=== PATIENT | female | born 1955 | race Caucasian/White ===

== ENCOUNTER → 2017-01-05 | Day surgery (SDC) | payer BC ==
[2016-12-16 13:12] VITALS: Ht 162.6 cm; Wt 86.4 kg
[~2017-01-05] VITALS: Ht 162.6 cm; Wt 86.4 kg
[~2017-01-05] MED LIST: ACET-749 PO; ATOR-26 PO; ATROPINE SULFATE 0.1 MG/ML 5ML SYR IV PRN; BUPIVACAINE 0.5 % 5 MG/1 ML MPF 30ML VIAL ONE; CEFAZOLIN 2000 MG/60 ML D5W IV SCH; ESCI1TAB10 PO; EpHEDrine SULFATE INJ 50 MG/ML AMP IV PRN; FENTANYL CITRATE INJ 50 MCG/1 ML 2 ML VIAL IV PRN; FENTANYL CITRATE INJ 50 MCG/1 ML 2 ML VIAL ONE; KETOROLAC TROMETHAMINE 30 MG/ML VIAL IV. PRN; LACTATED RINGER'S 1000ML 1,000 ML IV SCH; LIDOCAINE HCL 2% 2 ML VIAL (20MG/ML) ONE; LIDOCAINE HCL 2% LOCAL 20 ML VIAL ONE; MIDAZOLAM HCL 1 MG/ML 2ML VIAL ONE; ONDANSETRON INJ 2 MG/ML 2 ML VIAL IV PRN; ONDANSETRON INJ 2 MG/ML 2 ML VIAL ONE; PROPOFOL IV EMULSION 10 MG/ML 20 ML VIAL IV ONE; SODIUM CHLORIDE 0.9% 1000ML 1,000 ML IV SCH
--- NOTE | 2017-01-05 06:55 | History & Physical Bridge - [place] ---
H&P Re-Evaluation Bridge Note: I have examined the patient, reviewed the History & Physical and in the interval since the performance of the History & Physical I have noted the following changes of clinical significance: No changes noted
--- NOTE | 2017-01-05 07:31 | Discharge Instructions-SurgCtr ---
Discharge Instructions Date of Service Jan 05, 2017. Visit Reason for Visit: Left Carpal Tunnel Syndrome Discharge Discharge Diagnosis / Problem: LEFT CARPAL TUNNEL SYNDROME Discharge Goals Goal(s): Decrease discomfort, Improve function, Therapeutic intervention Activity Recommendations Activity Limitations: per Instructions/Follow-up section LIMITED USE OF LEFT HAND Anesthesia . Post Anesthesia Instructions: If you have had General Anesthesia or IV Sedation: * Do not drive today. * Resume driving when surgeon permits. * Do not make important decisions or sign legal documents today. * Call surgeon for: 1. Temperature elevations greater than 101 degrees F. 2. Uncontrollable pain. 3. Excessive bleeding. 4. Persistent nausea and vomiting. 5. Medication intolerance (nausea, vomiting or rash). * For nausea and vomiting use only clear liquids such as: tea, soda, bouillon until nausea subsides, then gradually increase diet as tolerated. * If you have any concerns or questions, call your surgeon's office. If physician is unavailable and it is an emergency, call 911 or go to the nearest emergency room. . Instructions / Follow-Up Instructions / Follow-Up MEDICATIONS: * Resume previous medications unless instructed otherwise by your surgeon. * Always take pain medication on a full stomach or with food to avoid upset stomach. * Do not drink alcohol or drive while taking narcotics. * Ibuprofen or Tylenol may be taken if narcotic not needed. SPECIAL CARE INSTRUCTIONS: __ None __ Keep extremity elevated and iced x 48 hours; apply ice 20-30 minutes 8-10 times/day. May remove at night. __ Sling __24 hrs/day __ Remove at night __ Shoulder Immobilizer __ 24 hrs/day __ Remove at night _X_ Dressing _X_ Maintain until seen in office, may shower with plastic over site __ Remove dressings in 24-48 hours and then may shower __ Cover incisions with band-aids after showering __ Do not remove steri-strips Call physician if chills or temperature rises above 102 degrees or pain unrelieved by prescribed pain medications at . FOLLOW UP IN 2 WEEKS . Diet Recommendations Home Diet: resume previous diet Procedures Procedures Performed: Left Carpal Tunnel Release Pending Studies Studies pending at discharge: no Medical Emergencies . Who to Call and When: Medical Emergencies: If at any time you feel your situation is an emergency, please call 911 immediately. . Non-Emergent Contact Non-Emergency issues call your: Surgeon . . "Provider Documentation" section prepared by Raffy Fuentes. .
[2017-01-05 07:33] VITALS: TEMP 36.4
--- NOTE | 2017-01-05 07:35 | [facility] Post Operative Brief Note ---
Immediate Operative Summary Operative Date Jan 05, 2017. Pre-Operative Diagnosis Left Carpal Tunnel Syndrome Post-Operative Diagnosis same Procedure(s) Performed Left Carpal Tunnel Release Surgeon Dr Dalton Process Safety Manager Surgeon(s) Travis Fuentes PA-C Estimated Blood Loss minimal Findings Left Carpal Tunnel Syndrome Specimens none Anesthesia Local with IV Sedation. Complication(s) None Disposition Recovery Room / PACU
--- NOTE | 2017-01-05 07:52 | Anesthesia Progress Nt - [facility] ---
Anesthesia Post Op Note Date & Time Jan 05, 2017 at 07:52 Vital Signs Pain Intensity: 0 Vital Signs Past 12 Hours Date Time Temp Pulse Resp B/P (MAP) Pulse Ox O2 Delivery O2 Flow Rate FiO2 01/05/17 07:33 36.4 68 16 113/75 (88) 98 Room Air 01/05/17 06:23 36.5 68 16 148/85 (106) 96 Room Air Notes Mental Status: alert / awake / arousable, participated in evaluation Pt Amnestic to Procedure: Yes Nausea / Vomiting: adequately controlled Pain: adequately controlled Airway Patency, RR, SpO2: stable & adequate BP & HR: stable & adequate Hydration State: stable & adequate Anesthetic Complications: no major complications apparent
[2017-01-05 07:55] VITALS: BP 119/79; PULSE 69; O2SAT 98
--- NOTE | 2017-01-05 14:33 | OPERATIVE REPORT ---
DATE OF OPERATION: 01/05/2017 SURGEON: Dr. Richard Dalton. TELEGRAPHIC TYPEWRITER MECHANIC: SARAH Martinez PREOPERATIVE DIAGNOSIS: Left carpal tunnel syndrome. POSTOPERATIVE DIAGNOSIS: Same. PROCEDURE PERFORMED: Left carpal tunnel release. COMPLICATIONS: None. ESTIMATED BLOOD LOSS: Minimal. TOURNIQUET TIME: Six minutes at 250 mmHg. ANESTHESIA: Local with IV sedation. OPERATIVE INDICATIONS: The patient is a 61-year-old female who has had a several year history of left hand pain, discomfort, and numbness. We have seen her in clinic and injected her on 2 separate occasions and she got pretty good temporary relief from the injection. Symptoms continued to recur. She had classic carpal tunnel syndrome. The patient elected to proceed with operative treatment. OPERATIVE PROCEDURE: The patient taken to the operating room, identified and placed on the operating table in supine position. All contact areas were appropriately padded. IV antibiotics were provided by the anesthesia team. A left forearm tourniquet was placed. Some IV sedation was provided. 8 mL of a 50:50 combination of 0.5% Marcaine and 2% lidocaine were then injected in and around the proposed incision site. The left hand was then prepped and draped in the usual sterile fashion. Left arm was elevated and exsanguinated with Esmarch and tourniquet was placed at 250 mmHg. A 2.5-3 cm incision was made in the palm just ulnar to the palmaris longus tendon. Blunt dissection was carried out through the subcutaneous tissues down below the palmar fascia. The palmar fascia was incised longitudinally in line with the skin incision. The underlying transverse carpal ligament was identified. It was transected distally with use of a Glades blade knife and bluntly spread. Attention was then drawn proximally. Blunt dissection was carried out above and below the ligament proximally. The ligament was then transected for a minimum distance of 3 cm proximal to the wrist flexion crease. The ligament was bluntly spread and found to be completely released. The wound was irrigated with copious amounts of normal saline. The tourniquet was then let down for final tourniquet time of 6 minutes. Hemostasis was assured with use of electrocautery. The wound was once again irrigated. The skin was then closed with 5-0 nylon suture in a horizontal mattress fashion. The hand was then cleaned and dried and a sterile dressing of Xeroform, 4 x 4, sterile cast padding and Keenan bandage were applied. The patient was then transferred to the recovery room in stable condition. The patient tolerated the procedure well with no complications. All needle and sponge counts were correct at the end of the operation. I attest to the content of the Intraoperative Record and any orders documented therein. Any exceptions are noted below. MTDD
== END | disposition home or self-care (01) ==
LOC: X.SURG 06:08
PROVIDERS: ATTEND Orthopaedic Surgery Sports Medicine
DX: G56.02 Carpal tunnel syndrome, left upper limb (principal); E78.5 Hyperlipidemia, unspecified; Z79.899 Other long term (current) drug therapy

== ENCOUNTER 2024-08-02 09:47 | Inpatient (IN) ==
--- NOTE | 2024-07-03 14:15 | PAT Medication Instructions ---
Medication Instructions Date of Service July 03, 2024 Home Medications albuterol sulfate 90 mcg/actuation aerosol inhaler 2 puff inhalation Q6H PRN SOB atorvastatin 40 mg tablet 40 mg PO HS ibuprofen 200 mg capsule 600 mg PO Q6H PRN Pain sertraline 50 mg tablet (Zoloft) 50 mg PO HS ASK your surgeon for instructions ibuprofen 200 mg capsule 600 mg PO Q6H PRN Pain Take morning of surgery With a small sip of water, OTHERWISE NOTHING TO EAT OR DRINK AFTER MIDNIGHT: albuterol sulfate 90 mcg/actuation aerosol inhaler 2 puff inhalation Q6H PRN SOB (use if needed; please bring rescue inhaler with you to hospital day of surgery if possible) Take evening before surgery albuterol sulfate 90 mcg/actuation aerosol inhaler 2 puff inhalation Q6H PRN SOB (if needed) atorvastatin 40 mg tablet 40 mg PO HS sertraline 50 mg tablet (Zoloft) 50 mg PO HS Other Notes If you have any questions please call us at [phone] or [phone] or [phone] or [phone]
--- NOTE | 2024-07-11 15:41 | Anesthesiology Consultation ---
Date of Service July 11, 2024 Assessment & Plan (1) Encounter for pre-operative examination: Chart Review Chart Review: Acceptable Risk for Surgery and Patient seen in Pre Admission Testing - Please send preop testing to PCP per patient request for continuity of care [facility] [place] Pt currently scheduled as 23 hours observation. If surgeon decides to change patient to Same Day Joint, patient would be acceptable risk for ELIDA, pending patient is motivated, has good support and surgeon's office completes Same Day Joint Program preop requirements. Per PAT appt on 07/11/24, no recent illness/disease exposures, illness related symptoms, or recent illness/disease positive tests. Will leave to surgeon's discretion if preop Covid testing needed PCP Clearance Letter 06/13/24= "Yes" patient is medically cleared for surgery History Surgery Operation Date: 08/02/24 08:15 Proposed Procedures p Left Total Hip Arthroplasty - Norris Aragon MD Height/Weight Height: 5 ft 4 in Weight: 86.5 kg Allergies Allergy/AdvReac Type Severity Reaction Status Date / Time No Known Allergies Allergy Verified 07/03/24 09:46 Medications Home Medications Medication Instructions Recorded Confirmed Last Taken albuterol sulfate 90 mcg/actuation 2 puff inhalation Q6H PRN SOB 07/03/24 07/03/24 Unknown aerosol inhaler atorvastatin 40 mg tablet 40 mg PO HS 07/03/24 07/03/24 Unknown ibuprofen 200 mg capsule 600 mg PO Q6H PRN Pain 07/03/24 07/03/24 Unknown sertraline 50 mg tablet (Zoloft) 50 mg PO HS 07/03/24 07/03/24 Unknown Past Medical History Medical History Asthma prn inh>uses mainly with illness stable breathing currently Depression History of COVID-19 2019 and 2021, no residual symptoms HLD (hyperlipidemia) PONV (postoperative nausea and vomiting) Exercise / Class Metabolic Activity II 4-5 Yardwork/Stairs/Walk up hill (one flight of stairs - no chest pain or SOB ) Past Surgical History Surgical History History of carpal tunnel surgery of left wrist History of dilatation and curettage 2009 Hx of appendectomy 2016 Hx of colonoscopy Past Anesthesia History No Hx of Anesthesia Complications (with exception to PONV ) and No Family Hx of Anesthesia Complications History of PONV History of PONV (improve with pre and venus op anti nausea medication ) and Hx of Motion Sickness Social History Smoking Status: Never smoker Do You Dip or Chew Tobacco: No Hx Alcohol Use: Yes Alcohol type: wine alcohol intake frequency: holidays/special occasions only Hx Substance Use: No substance use type: does not use Review of Systems - Hx of snoring- no hx of sleep study- improved with weight loss Patient denies chest pain, shortness of breath, dyspnea on exertion, reflux, cough, wheezing, palpitations. No hx of seizures, stroke, [place]. No hx of blood clots or blood transfusions Physical Exam Vital Signs VITALS BP 134/85 P 89 TEMP 97.9 SP02 93% RESP 16 Constitutional no acute distress ENMT Mouth: no TMJ clicking Thyromental Distance: > or= 3.5 Finger Breadths (3.5) Mallampati Class: I Mouth / Teeth: 2 1. Flapper Neck neck extension not limited Respiratory normal respiratory effort; no respiratory distress Auscultation: lungs clear to auscultation bilaterally; no wheezes Cardiovascular Rate/Rhythm: regular rate and regular rhythm Heart Sounds: no murmur Vessels: no carotid bruit Musculoskeletal Spine: no pain with cervical ROM Extremities: extremities normal to inspection Psychiatric Orientation: alert Lab Results Anesthesia Preop Results Results Anesthesia Widget: 2 WBC 8.99 K/ul (4.8-10.8) 07/11/24 Hgb 12.9 g/dl (12.0-16.0) 07/11/24 Hct 38.5 % (37.0-47.0) 07/11/24 Plt 264 K/uL (130-400) 07/11/24 Na 141 mmol/L (136-145) 07/11/24 K 4.2 mmol/L (3.5-5.1) 07/11/24 Cl 106 mmol/L (98-107) 07/11/24 CO2 29 mmol/L (21-32) 07/11/24 BUN 21 mg/dl (6-23) 07/11/24 Creat 0.99 mg/dl (0.6-1.2) 07/11/24 Glucose Level 83 mg/dl (70-99(Fasting)) 07/11/24 PT 10.1 Seconds (9.0-12.0) 07/11/24 PTT 28 Seconds (21-31) 07/11/24 INR 0.9 (0.9-1.1) 07/11/24 Urine Color Yellow 07/11/24 Urine Appearance Clear (Clear) 07/11/24 Urine pH 6.0 (4.5-7.5) 07/11/24 Urine Specific [place] 1.031 (1.000-1.030) H 07/11/24 Urine Protein Negative (Negative) 07/11/24 Urine Glucose (UA) Negative (Negative) 07/11/24 Urine Ketones Trace (Negative) H 07/11/24 Urine Blood Negative (Negative) 07/11/24 Urine Nitrite Negative (Negative) 07/11/24 Urine Bilirubin Negative (Negative) 07/11/24 Urine Urobilinogen Negative (Negative) 07/11/24 Urine Leukocyte Esterase 1+ (Negative) H 07/11/24 Urine WBC (Auto) 6-10 /hpf (0-5) H 07/11/24 Urine RBC (Auto) 6-10 /hpf (0-2) H 07/11/24 Urine Hyaline Casts (Auto) 0-2 /lpf (0-2) 07/11/24 Urine Epithelial Cells (Auto) 3-5 /hpf (0-2) H 07/11/24 Urine Bacteria (Auto) None Seen (None Seen) 07/11/24 Blood Type O Positive 07/11/24 Antibody Screen NEGATIVE 07/11/24 Testing Electrocardiogram Date: 07/11/24 Findings: + NSR @ (78bpm) Normal EKG pre cardio
--- NOTE | 2024-07-17 16:57 | History & Physical Report ---
Date of Service July 17, 2024 Assessment & Plan (1) Osteoarthritis of left hip: Plan: PRE-OP Diagnosis: Left hip osteoarthritis Planned Procedure: Left total hip arthroplasty Plan: Patient is scheduled to undergo this procedure at the [facility] with Dr. Aragon on , [ ]. Risks and complications of the procedure such as: Infection, bleeding, pain, scarring, nerve blood vessel damage, weakness, wound problems, stiffness, incomplete relief of symptoms, hardware failure, hardware loosening, wear, fracture, tendon or ligament injury, dislocation, leg length inequality, blood clots, Embolism, heart attack, stroke and were explained to the patient at her visit today. Informed consent to perform the procedure was obtained. Patient patient had her PAT appointment on July 12 and while there she obtained a CBC with differential, complete metabolic panel, PT/INR, blood type and screen, urinalysis, urine culture and sensitivity, EKG, and a nasal culture for MRSA. Patient saw her PCP at [facility] on June 13 and received clearance. Patient states that she plans on doing in-home physical therapy for the first 1 to 2 weeks postoperatively and plans on doing her outpatient physical therapy at [facility]. Patient will need a walker, raised toilet seat, shower chair and a hip kit. During today's visit we reviewed the total hip packet as well as precautions. We discussed discharge planning from the hospital. I provided paperwork to obtain a handicap placard for their vehicle. We discussed lectures offered by [facility] in regards to joint replacement surgery via Zoom. I advised the patient that upon discharge from hospital we will prescribe a narcotic pain medication and anti-inflammatory. Patient will also be on an 81 mg aspirin twice daily for blood clot prevention. Patient will be scheduled for 2-week postoperative follow-up visit with myself on August 17 at 1 PM. This chart was completed utilizing [employer] voice recognition software. Grammatical errors, random word insertions, pronoun errors, and in complete sentences are an occasional consequence of the system. Any questions or concerns about the content, text, or information contained within the body of this dictation should be addressed directly to the physician for clarification. History of Present Illness Chief Complaint: Chief Complaint: Left hip pain Primary Care Provider: Richard Dalton MD History of Present Illness (including history relevant to procedure): This 68-year-old female presents to the clinic today for her preoperative history and physical. Patient complains of severe left hip pain with limitations in range of motion since November of this year. She states that his become progressively worse and is affecting her gait. Patient states she has lost 15 pounds since her last visit, with dietary modification. She has failed conservative management with corticosteroid injections, home rehab program, use of nonsteroidal agents without alleviation of her pain. She has a walker at home that she uses when the weather is bad. She is elected to proceed with surgical intervention at this time. Review Of Systems: A 12 point review of systems is performed and is unremarkable except for those things stated in the HPI and past medical history. Past Medical History: Problems: Osteoarthritis of left hip Left hip pain Hypercholesterolemia Depression Procedure History Procedure Procedure Date Comments APPENDECTOMY Carpal tunnel Allergies and Sensitivities: NKA Current Home Meds: (Last Updated 07/17 15:37) atorvastatin (atorvastatin 40 mg oral tablet) 40 mg PO qhs sertraline (sertraline 50 mg oral tablet) 50 mg PO Daily Initial Wt: 07/17 87.1 kg 192 lb Allergies Allergy/AdvReac Type Severity Reaction Status Date / Time No Known Allergies Allergy Verified 07/03/24 09:46 Home Medications Medication Instructions Recorded Confirmed Type albuterol sulfate 90 mcg/actuation 2 puff inhalation Q6H PRN SOB 07/03/24 07/03/24 History aerosol inhaler atorvastatin 40 mg tablet 40 mg PO HS 07/03/24 07/03/24 History ibuprofen 200 mg capsule 600 mg PO Q6H PRN Pain 07/03/24 07/03/24 History sertraline 50 mg tablet (Zoloft) 50 mg PO HS 07/03/24 07/03/24 History Past Med/Surg History Problem List (Updated 07/17/24 @ 16:56 by Eduard Perez PA-C) Osteoarthritis of left hip Encounter for pre-operative examination Depression (Chronic) HLD (hyperlipidemia) (Chronic) Medical History Asthma prn inh>uses mainly with illness stable breathing currently Depression History of COVID-19 2019 and 2021, no residual symptoms HLD (hyperlipidemia) PONV (postoperative nausea and vomiting) Surgical History History of carpal tunnel surgery of left wrist History of dilatation and curettage 2010 Hx of appendectomy 2016 Hx of colonoscopy Social History Smoking Status: Never smoker Second Hand Exposure: No; Do You Dip or Chew Tobacco: No; Hx Alcohol Use: Yes Alcohol type: wine Hx Substance Use: No Preferred Language: Tamazight Communication Ability: Effective Chemical Engineer Required: No Beliefs That Will Affect Care: None Current Living Situation: Spouse Feels Safe at Home: Yes Assistive Devices: Glasses and Other Physical Exam Physical Exam: Physical Exam: (relevant to the procedure, including heart and lung evaluation) General: Alert and oriented x 3 with proper grooming and hygiene Eyes: Pupils are equal and reactive to light with accommodation. Extraocular movements are intact Throat: Posterior pharynx clear with absence of edema, erythema or exudate. Dentition is appropriate Cardiac: Regular rate and rhythm with no murmurs or gallops appreciated Lungs: Clear to auscultation throughout with no wheezing, rales or rhonchi Abdomen: Mildly obese, nondistended, nontender with NABS Extremities: Left hip: Flexion is limited to 90 degrees, internal rotation to -5 degrees and external rotation to 25 degrees. Logroll test is positive. Stinchfield test is positive. Scour and impingement tests positive. Antalgic gait Neuro: Cranial nerves II through XII are intact no motor or sensory deficit Skin: Normal in appearance no open skin areas or discharge Results & Data Diagnostic Findings Studies (relevant to the procedure): AP Pelvis, Cross table lateral views of the left hip from 12/2023which shows severe arthritis. Large subchondral cysts in femoral head
[~2024-08-02 09:47] MED LIST changes: -ACET-749 PO; -ATOR-26 PO; -ATROPINE SULFATE 0.1 MG/ML 5ML SYR IV PRN; -BUPIVACAINE 0.5 % 5 MG/1 ML MPF 30ML VIAL ONE; +BUPIVACAINE 0.5 % 5 MG/1 ML PF 10ML VIAL ONE; -CEFAZOLIN 2000 MG/60 ML D5W IV SCH; -ESCI1TAB10 PO; -EpHEDrine SULFATE INJ 50 MG/ML AMP IV PRN; -FENTANYL CITRATE INJ 50 MCG/1 ML 2 ML VIAL IV PRN; -FENTANYL CITRATE INJ 50 MCG/1 ML 2 ML VIAL ONE; -KETOROLAC TROMETHAMINE 30 MG/ML VIAL IV. PRN; -LACTATED RINGER'S 1000ML 1,000 ML IV SCH; -LIDOCAINE HCL 2% 2 ML VIAL (20MG/ML) ONE; -LIDOCAINE HCL 2% LOCAL 20 ML VIAL ONE; -MIDAZOLAM HCL 1 MG/ML 2ML VIAL ONE; -ONDANSETRON INJ 2 MG/ML 2 ML VIAL IV PRN; -ONDANSETRON INJ 2 MG/ML 2 ML VIAL ONE; -PROPOFOL IV EMULSION 10 MG/ML 20 ML VIAL IV ONE; -SODIUM CHLORIDE 0.9% 1000ML 1,000 ML IV SCH
[2024-08-02] MEDS ORDERED: MIDAZOLAM HCL 1 MG/ML 2ML VIAL ONE (10:43)
[2024-08-02] MEDS ORDERED: fentaNYL citrate PF 100 MCG/2 ML VIAL ONE (10:43)
[2024-08-02] MEDS: LR 500ML BOLUS, THEN 15ML/HR IV SCH (10:58)
[2024-08-02] MEDS: Scopolamine 1 MG TDSY TD SCH (10:58)
[2024-08-02] MEDS: ACETAMINOPHEN 500 MG TAB PO SCH ×2 (10:59→21:39)
[2024-08-02] MEDS: dexAMETHasone**PF** 10 MG/ML VIAL IV SCH (10:59)
[2024-08-02] MEDS: FAMOTIDINE 20 MG TAB PO SCH (11:00)
[2024-08-02] MEDS: LR 60ML/HR IV SCH (11:00)
[2024-08-02] MEDS: CeleBREX 200 MG CAP PO SCH (11:00)
[2024-08-02] MEDS: traMADol HCL 50 MG TABLET PO SCH (11:00)
[2024-08-02] MEDS ORDERED: ONDANSETRON INJ 2 MG/ML 2 ML VIAL IV PRN ×2 (11:15→14:42)
[2024-08-02] MEDS ORDERED: fentaNYL citrate PF 100 MCG/2 ML VIAL IV PRN (11:15)
[2024-08-02] MEDS ORDERED: ATROPINE SULFATE 0.1 MG/ML 10ML SYR IV PRN (11:15)
[2024-08-02] MEDS ORDERED: PROMETHAZINE HCL 6.25 MG in SODIUM CHLORIDE 0.9% 50 ML IV PRN (11:15)
[2024-08-02] MEDS ORDERED: ePHEDrine sulfate 50 MG/ML AMP IV PRN (11:15)
[2024-08-02] MEDS ORDERED: PROPOFOL IV EMULSION 10 MG/ML 20 ML VIAL IV ONE (11:38)
--- NOTE | 2024-08-02 12:10 | History & Physical Bridge Note ---
Date of Service August 02, 2024 History & Physical Bridge Note I have examined the patient, reviewed the History & Physical and in the interval since the performance of the History & Physical I have noted the following changes of clinical significance: no changes noted
[2024-08-02] MEDS: TRANEXAMIC ACID 1,000 MG **IV Pre-op IV SCH (12:36)
[2024-08-02] MEDS: ceFAZolin 2000MG 2,000 MG/15 ML SYR IV SCH ×2 (13:00→21:40)
--- OUTSIDE RECORDS SUMMARY | 2024-08-02 13:03 | External Medical Summary | Continuity of Care Document ---
Author Name Unknown Organization [place] [id number] Address [address] [place] [phone] Encounter [facility] [id number] Date(s): 07/17/24 - 07/17/24 [facility] [address] [place] [id number] [address] Encounter Diagnosis Preop examination(Discharge Diagnosis) - 07/17/24 Osteoarthritis of left hip(Discharge Diagnosis) - 07/17/24 Discharge Disposition: Home or Self Care Attending Physician: SANTOSH Perez, Eduard Allergies, Adverse Reactions, Alerts No Known Allergies Medications atorvastatin 40 mg oral tablet Start: 01/27/24 1:23:00 PM EDT, 1 tab, PO, qhs Start Date: 01/27/24 Status: Ordered sertraline 50 mg oral tablet Start: 01/27/24 1:23:00 PM EDT, 1 tab, PO, Daily Start Date: 01/27/24 Status: Ordered Mental Status 07/17/24 Barriers to Learning one year None evide nt Mandatory Health Literacy Documentation Yes Health Literacy Communication Barriers N ever Primary Language Azeri Problem List Condition Confirmation Course Effective Dates Status H ealth Status Informant Left hip pain Confirmed Active Osteoarthritis of left hip Confirmed Active Diagnosis Diagnosis Type Effective Dates Health Status Clinical Service Informant Osteoarthritis of left hip Discharge Diagnosis 07/17/24 Preop examination Discharge Diagnosis 07/17/24 Procedures Procedure Date Related Diagnosis Body Site Status APPENDECTOMY Completed Carpal tunnel Completed Vital Signs Most recent to oldest [Reference Range]: 1 Height 161.0 cm (07/17/24 3:39 PM) Patient Weight 87.1 kg (07/17/24 3:39 PM) Body Mass Index 33.6 kg/m2 (07/17/24 3:39 PM) Temperature [36.5-37.9 DegC] 36.5 DegC (07/17/24 3:39 PM) Respiratory Rate 24 br/min (07/17/24 3:39 PM) Blood Pressure 128/76mmHg (07/17/24 3:39 PM) Social History Social History Type Response Smoking Status Never smoked cigaret reagan Sex Female Sex Representation Female (finding) Pre-OP H & P * SANTOSH Perez, Eduard: PERFORM Event Display: Pre-OP H & P Authored Date: [id number] PRE-OPERATIVE HISTORY AND PHYSICAL Name: FABI HUFF Patient Number: [id number] : 1955 Date of Service: 07/17/2024 PRE-OP Diagnosis: Left hip osteoarthritis Planned Procedure: Left total hip arthroplasty Chief Complaint: Left hip pain History of Present Illness (including history relevant to procedure): This 68-year-old female presents to the clinic today for her preoperative history and physical. Patient complains of severe left hip pain with limitations in range of motion since November of this year. She states that his become progressively worse and is affecting her gait. Patient states she has lost 15 pounds since her last visit, with dietary modification. She has failed conservative management with corticosteroid injections,home rehab program, use of nonsteroidal agents without alleviation of her pain. She has a walker athome that she uses when the weather is bad. She is elected to proceed with surgical intervention atthis time. Review Of Systems: A 12 point review of systems is performed and is unremarkable except for those things stated in the HPI and past medical history. Past Medical History: Problems: Osteoarthritis of left hip Left hip pain Hypercholesterolemia Depression Procedure History Procedure Procedure Date Comments APPENDECTOMY Carpal tunnel Allergies and Sensitivities: NKA Current Home Meds: (Last Updated 07/17 15:37) atorvastatin (atorvastatin 40 mg oral tablet) 40 mg PO qhs sertraline (sertraline 50 mg oral tablet) 50 mg PO Daily Vitals: Last Updated 07/17/24 15:39 Weights: Last Updated 07/17/24 15:39 Date Temp Pulse BP RR SpO2 FIO2 Date Wt(kg) Wt(lb) 07/17 15:39 36.5 128/76 24 98 07/17 15:39 87.1 192 07/17 15:39 87.1 192 24 Hr Tmax: 36.5 at 07/17 15:39 Initial Wt: 07/17 87.1 kg 192 lb Physical Exam: (relevant to the procedure, including heart and lung evaluation) General: Alert and oriented x 3 with proper grooming and hygiene Eyes: Pupils are equal and reactive to light with accommodation. Extraocular movements are intact Throat: Posterior pharynx clear with absence of edema, erythema or exudate. Dentition is appropriate Cardiac: Regular rate and rhythm with no murmurs or gallops appreciated Lungs: Clear to auscultation throughout with no wheezing, rales or rhonchi Abdomen: Mildly obese, nondistended, nontender with NABS Extremities: Left hip: Flexion is limited to 90 degrees, internal rotation to -5 degrees and external rotation to 25 degrees. Logroll test is positive. Stinchfield test is positive. Scour and impingement tests positive. Antalgic gait Neuro: Cranial nerves II through XII are intact no motor or sensory deficit Skin: Normal in appearance no open skin areas or discharge Studies (relevant to the procedure): AP Pelvis, Cross table lateral views of the left hip from 12/2023which shows severe arthritis. Large subchondral cysts in femoral head Plan: Patient is scheduled to undergo this procedure at the [facility] with Dr. Aragon on , [ ]. Risks and complications of the procedure such as: Infection, bleeding, pain, scarring, nerve blood vessel damage, weakness, wound problems, stiffness, incomplete relief of symptoms, hardware failure, hardware loosening, wear, fracture, tendon or ligament injury, dislocation, leg length inequality, blood clots, Embolism, heart attack, stroke and were explained to the patient at her visit today. Informed consent to perform the procedure was obtained. Patient patient had her PAT appointment on July 12 and while there she obtained a CBC with differential, complete metabolic panel, PT/INR, blood type and screen, urinalysis, urine culture and sensitivity, EKG,and a nasal culture for MRSA. Patient saw her PCP at [facility] on June 13 and received clearance. Patient states that she plans on doing in-home physical therapy for the first 1 to 2 weeks postoperatively and plans on doing her outpatient physical therapy at [facility]. Patient will need a walker, raised toilet seat, shower chair and a hip kit. During today's visit we reviewed the total hip packet as well as precautions. We discussed discharge planning from the hospital. I provided paperwork to obtain a handicap placard for their vehicle. We discussed lectures offered by [facility] in regards to joint replacement surgery via Zoom. I advised the patient that upon discharge from hospital we will prescribe a narcotic pain medication and anti-inflammatory. Patient will also be on an 81 mg aspirin twice daily for blood clot prevention. Dianewilynn be scheduled for 2-week postoperative follow-up visit with myself on August 17 at 1 PM. This chart was completed utilizing [employer] voice recognition software. Grammatical errors,random word insertions, pronoun errors, and in complete sentences are an occasional consequence of the system. Any questions or concerns about the content, text, or information contained within the body of this dictation should be addressed directly to the physician for clarification. Electronic Signature on File Electronically Reviewed/Signed by: Eduard Perez PA-C Author Signature Dt/Tm:07/17/2024 04:49 PM Division of Sports Medicine Electronically Reviewed/Signed by: MD Sarah Gardner Signature Dt/Tm: 07/18/2024 03:49PM Division of Sports Medicine [place]
[2024-08-02] MEDS: ROPIVACAINE 0.5% HCL/PF 246 MG, Ketorolac (*for OR use only*) 30 MG, EPINEPHrine 30MG/3... INFIL SCH (14:09)
[2024-08-02] MEDS: TRANEXAMIC ACID 1,000 MG **IV Intra-op IV SCH (14:10)
[2024-08-02] MEDS: ORTHO JOINT ANESTHETIC ONE (14:10)
--- NOTE | 2024-08-02 14:35 | Operative Report ---
Post Operative Report Pre & Post Diagnosis Operation Date: 08/02/24 11:55 Pre-Op Diagnosis: Left Hip Osteoarthritis Post-Op Diagnosis: Left Hip Osteoarthritis I identified the patient and participated in the time-out.: Yes Procedure Operation Date: 08/02/24 11:55 Actual Procedures p Left Total Hip Arthroplasty, Uncemented(Left) - Norris Aragon MD Surgeon Norris Aragon MD [employer] RACHELL Perez PA-C. No resident or fellow was available to assist. Estimated Blood Loss 100 Findings Consistent with Post-Op Diagnosis Specimens Left femoral head Anesthesia Type Spinal MAC Complications none Disposition Disposition: Recovery Room Indications 68-year-old male with left hip osteoarthritis refractory to conservative management. X-rays demonstrate [id number] disease with slight upsloping of the sourcil consistent with mild hip dysplasia. I had a long discussion with her about the risks and benefits of surgery, alternatives to surgery, and expected outcomes. After reviewing all these she elected to proceed with surgery. All questions were answered. Informed consent was signed. Description of Procedure Patient was identified in the preoperative holding area where the surgical site, left hip, was marked. A spinal anesthetic was placed, then the patient was brought back to the main operating room, placed in the operating table and moved into the lateral decubitus position. Axillary roll was placed. All bony prominences were padded. Perioperative antibiotics and tranexamic acid 1 gram IV were administered. The operative extremity was prepped and draped in the normal sterile fashion. Prior to incision a multidisciplinary timeout was called. All in the room were in agreement. We began by making an incision for a posterior approach to the hip. We dis sected down through subcutaneous tissues to the level of the fascia. The fascia was incised in line with the incision. Charnley bow was placed. Fatty tissue was reflected posteriorly off the back of the greater trochanter to expose the piriformis and short external rotators of the hip. Quadratus femoris was taken off the femur subperiosteally. The piriformis and short external rotators were dissected off the posterior aspect of the hip. A box cut was made in the capsule. Inferior hip capsule was released off the femur. The femoral head was dislocated. The femoral neck cut was made at our preoperative template. The acetabulum was then exposed. The labrum was sharply excised. Contents of the cotyloid fossa were removed with electrocautery. We then began reaming at a size 8 mm less than our preoperative template. We reamed up by 1 [address] the way up to a size 54 mm cup. This gave us good bleeding cancellus bone circumferentially. The acetabulum was then irrigated out and dried. The real [place]ville Gription cup was then impacted down into position with 45 degrees of lateral opening and 25 degrees of anteversion. A single cancellous bone screw was placed up into the ilium. Excellent fixation was obtained. A trial liner for a 36 mm femoral head was then placed. Next we turned our attention to the femur. The lateral neck was removed with a box osteotome. Intramedullary guide was used to establish the intramedullary canal. We then broached all the way up to a size 4. We began trialing with a standard offset neck and a +5 head. Hip was reduced. Leg lengths were symmetric. The hip was stable in extension and external rotation, and stable in the sleeper position. At 90 degrees of hip flexion the hip could be internally rotated 70 degrees before levering out of the cup. I was very happy with the stability exam. Therefore the hip was dislocated and the femoral trial was removed. The acetabulum was re-exposed, and the trial liner was removed. [place] hole eliminator screw was placed. An Altrx polyethylene liner for a 36 mm femoral head was then impacted into the shell. The locking mechanism was checked to ensure that it had engaged which it had. The femur was re-exposed. The femoral canal was irrigated and dried. The real Actis femoral stem was opened up. This was impacted down into position. The femoral head was opened up and gently impacted down onto the trunnion. The hip was atraumatically reduced. Another 1 gram of IV tranexamic acid was started prior to closure. The wound was irrigated out with sterile Betadine solution. The periarticular injection cocktail was then placed. The short external rotators, piriformis, and posterior capsule were repaired through drill holes in the greater trochanter using #2 Vicryl. The fascia was run with a looped #1 PDS. The subcutaneous layer was closed with #1 PDS. The dermal layer was closed with 2-0 Vicryl. Zip line was used for the skin followed by a Silverlon dressing. A compressive dressing was then placed. The patient was then rolled supine. Leg lengths were rechecked and were symmetric. An abduction pillow was placed. Sedation was lifted and the patient was transferred to the recovery room in stable condition. Summary of implants: Depuy Granville Gription Acetabular Shell Sector Cup, 54 mm outer diameter Granville Cancellous bone screw, 6.5 x 40 mm [place] hole eliminator Granville Altrx Polyethylene Acetabular Liner, Neutral, with a 36 mm inner diameter DePuy Actis collared cementless Femoral stem, 12/14 taper, size 4 standard offset 36 mm ceramic femoral head with +5 offset Postoperative course: Patient will be admitted overnight from the recovery room. Patient will be weightbearing as tolerated with posterior hip precautions. Aspirin for DVT prophylaxis I attest to the content of the Intraoperative Record and any orders documented therein. Any exceptions are noted below.
--- NOTE | 2024-08-02 14:41 | Operative Report ---
Post Operative Report Pre & Post Diagnosis Operation Date: 08/02/24 11:55 Pre-Op Diagnosis: Left Hip Osteoarthritis Post-Op Diagnosis: Left Hip Osteoarthritis I identified the patient and participated in the time-out.: Yes Procedure Operation Date: 08/02/24 11:55 Actual Procedures p Left Total Hip Arthroplasty, Uncemented(Left) - Norris Aragon MD Surgeon Norris Aragon MD Medical Charge Entry Specialist RACHELL Perez PA-C. No resident or fellow was available to assist. Estimated Blood Loss 100 Findings Consistent with Post-Op Diagnosis Specimens femoral head Description of Procedure I was present during the entire case assisting with positioning, prepping, draping, wound retraction, wound closure, dressing and abduction pillow placement. No fellow present. Please see Dr. Aragon procedure note for specifics of the case. I attest to the content of the Intraoperative Record and any orders documented therein. Any exceptions are noted below.
[2024-08-02] MEDS ORDERED: oxyCODONE HCL IR 5 MG TAB (IMMEDIATE RELEASE) PO PRN (14:42)
[2024-08-02] MEDS ORDERED: MAGNESIUM HYDROXIDE SUSP 30 ML UDC PO PRN (14:42)
[2024-08-02] MEDS ORDERED: METOCLOPRAMIDE HCL INJ 5 MG/ML 2 ML VIAL IV PRN (14:42)
[2024-08-02] MEDS ORDERED: bisacodyL 10 MG SUPP PR PRN (14:42)
[2024-08-02] MEDS ORDERED: diphenhydrAMINE 50 MG/ML VIAL IV PRN (14:42)
[2024-08-02] MEDS ORDERED: ALUMINUM/MAGNESIUM SUSP 30 ML UDC PO PRN (14:42)
[2024-08-02] MEDS ORDERED: NALOXONE HCL 0.4 MG/1 ML VIAL/CARP IV PRN (14:42)
[2024-08-02] MEDS ORDERED: ALBUTEROL HFA 8 GM INHALER INH PRN (14:44)
--- NOTE | 2024-08-02 15:25 | Anesthesiology Progress Note ---
Date of Service August 02, 2024 Anesthesia Post Procedure Vital Signs Vital Signs: Temp Pulse Pulse Resp BP Pulse Ox O2 Del Method 08/02/24 14:40 36.2 C L 83 18 125/91 96 Oxymask 08/02/24 10:48 36.5 C 81 20 125/91 98 Room Air O2 Flow Rate 08/02/24 14:40 6 08/02/24 10:48 Transfer of Care Handoff Completed per policy Notes Mental Status: alert / awake / arousable Patient Amnestic to Procedure: Yes Nausea / Vomiting: adequately controlled Pain: adequately controlled Airway Patency, RR, SpO2: stable & adequate BP & HR: stable & adequate Hydration State: stable & adequate Neuraxial Anesthesia: was administered and sensory block is resolving Anesthetic Complications: no major complications apparent
--- NOTE | 2024-08-02 15:35 | XRay Report ---
XR pelvis 1-2V routine CLINICAL HISTORY: Postoperative evaluation. COMPARISON: Pelvis radiograph July 17, 2024. FINDINGS: Alignment of the total left hip arthroplasty is anatomic. There is no periprosthetic fract ure or unexpected radiopaque foreign body. IMPRESSION: Expected findings following total left hip arthroplasty. ACT 112: Negative or not required by law. Electronically signed by: Jonathan Saldivar M.D. 08/02/2024 3:34 PM
[2024-08-02] MEDS: KETOROLAC TROMETHAMINE 15 MG/ML VIAL IV SCH (17:44)
[2024-08-02] MEDS: Scopolamine CHECK PATCH PLACEMENT SCH (17:48)
[2024-08-02] MEDS: ATORVASTATIN 40 MG TAB PO SCH (21:40)
[2024-08-02] MEDS: ASPIRIN 81 MG ECTAB PO SCH (21:40)
[2024-08-02] MEDS: SERTRALINE HCL 50 MG TABLET PO SCH (21:40)
[2024-08-02] MEDS: SENNA 8.6 MG TAB PO SCH (21:41)
[2024-08-02] MEDS: DOCUSATE SODIUM 100 MG CAP PO SCH (21:41)
[2024-08-03 07:42] LABS: Eosinophils # (auto) 0.01 K/uL (0.00-0.50); Eosinophils % (auto) 0.1 %; Hematocrit (blood only) 33.3 % (37.0-47.0); Hemoglobin 11.2 g/dl (12.0-16.0); Immature Granulocytes # (auto) 0.05 K/uL (0.01-0.20); Immature Granulocytes % (auto) 0.4 %; Lymphocytes # (auto) 1.56 K/uL (1.20-3.40); Lymphocytes % (auto) 13.5 %; Mean Corpuscular Hemoglobin 29.2 pg (25.0-34.0); Mean Corpuscular Hgb Conc 33.6 g/dL (32.0-36.0); Mean Corpuscular Volume 86.7 fL (80.0-100.0); Mean Platelet Volume 11.1 fL (9.4-12.4); Monocytes # (auto) 0.81 K/uL (0.11-0.59); Neutrophils # (auto) 9.09 K/uL (1.40-6.50); Platelet Count 214 K/uL (130-400); RDW Coefficient of Variation 13.3 % (11.5-14.5); RDW Standard Deviation 42.2 fL (36.4-46.3); Red Blood Count 3.84 M/uL (4.20-5.40); White Blood Count 11.52 K/ul (4.8-10.8)
[2024-08-03 07:49] LABS: Calcium 9.3 mg/dl (8.6-10.3)
[2024-08-03 08:34] VITALS: BP 136/80; PULSE 82; RESP 16; TEMP 98.1; O2SAT 95
[2024-08-03] MEDS: dexAMETHasone 4 MG TAB PO SCH (09:06)
[2024-08-03] MEDS: MULTIVITAMIN TAB PO SCH (09:06)
--- NOTE | 2024-08-03 09:09 | Orthopedic Progress Note ---
Date of Service August 03, 2024 Assessment & Plan (1) S/P total left hip arthroplasty: Plan: Total hip precautions reviewed Weightbearing as tolerated with walker assistance Ice with easy wrap Abduction pillow use x 6 weeks DVT prophylaxis with aspirin and DB stockings Pain controlled p.o. medication Keep Silverlon dressing in place Plan on discharge home today with in-home physical therapy Follow-up with [facility] orthopedics as previously scheduled With questions contact our clinic at [phone] Admission and Anticipated Discharge Date Admission Date: August 02, 2024 Subjective This 68-year-old female is day 1 status post left total hip arthroplasty. Patient is doing very well this morning. She denies any pain. She states she has been able to transition from her bed to the bathroom several times without assistance except for her walker. Patient is hoping to be discharged home later today. Currently she denies chest pain, shortness of breath, fever, chills, sweats, nausea, vomiting, diarrhea or difficulty voiding. Patient has no complaint of numbness or tingling in her left lower extremity. Review of Systems Review of Systems: All systems reviewed & are unremarkable except as noted in Subjective Physical Exam Physical Exam: Left hip: Outer dressing was removed. Silverlon is clean dry and intact left in place. Patient is able to easily perform a straight leg raise test and actively dorsi and plantarflex her foot. She tolerates hip flexion to 80 degrees and only experiences a pulling sensation with light passive internal rotation. She has no discomfort with external rotation. Logroll test causes no discomfort. Patient is neurovascularly intact in the left lower extremity. Quad strength is 4/5. Results & Data Vital Signs (Past 12 Hours) Vital Signs Temp Pulse Resp BP Pulse Ox O2 Del Method 08/03/24 08:33 36.7 C 82 16 136/80 95 Room Air 08/03/24 03:00 36.8 C 64 20 128/77 97 Room Air 08/02/24 23:00 36.7 C 69 18 121/76 94 Room Air Diagnostic Findings Laboratory Results WBC 11.52 K/ul (4.8-10.8) H 08/03/24 06:12 RBC 3.84 M/uL (4.20-5.40) L 08/03/24 06:12 Hgb 11.2 g/dl (12.0-16.0) L 08/03/24 06:12 Hct 33.3 % (37.0-47.0) L 08/03/24 06:12 MCV 86.7 fL (80.0-100.0) 08/03/24 06:12 MCH 29.2 pg (25.0-34.0) 08/03/24 06:12 MCHC 33.6 g/dL (32.0-36.0) 08/03/24 06:12 RDW Std Deviation 42.2 fL (36.4-46.3) 08/03/24 06:12 RDW Coeff of Shira 13.3 % (11.5-14.5) 08/03/24 06:12 Plt Count 214 K/uL (130-400) 08/03/24 06:12 MPV 11.1 fL (9.4-12.4) 08/03/24 06:12 Immature Gran % (Auto) 0.4 % 08/03/24 06:12 Neut % (Auto) 79.0 % 08/03/24 06:12 Lymph % (Auto) 13.5 % 08/03/24 06:12 [place] % (Auto) 7.0 % 08/03/24 06:12 Eos % (Auto) 0.1 % 08/03/24 06:12 Baso % (Auto) 0.0 % 08/03/24 06:12 Neut # (Auto) 9.09 K/uL (1.40-6.50) H 08/03/24 06:12 Lymph # (Auto) 1.56 K/uL (1.20-3.40) 08/03/24 06:12 [place] # (Auto) 0.81 K/uL (0.11-0.59) H 08/03/24 06:12 Eos # (Auto) 0.01 K/uL (0.00-0.50) 08/03/24 06:12 Baso # (Auto) 0.00 K/uL (0.00-0.20) 08/03/24 06:12 Immature Gran # (Auto) 0.05 K/uL (0.01-0.20) 08/03/24 06:12 Sodium 139 mmol/L (136-145) 08/03/24 06:12 Potassium 4.0 mmol/L (3.5-5.1) 08/03/24 06:12 Chloride 105 mmol/L (98-107) 08/03/24 06:12 Carbon Dioxide 27 mmol/L (21-32) 08/03/24 06:12 Anion Gap 7 (3-11) 08/03/24 06:12 BUN 20 mg/dl (6-23) 08/03/24 06:12 Creatinine 0.69 mg/dl (0.6-1.2) 08/03/24 06:12 Est Cr Clr Drug Dosing 85.0 ml/min 08/03/24 06:12 eGFR 95.66 08/03/24 06:12 BUN/Creatinine Ratio 29.0 (10-20) H 08/03/24 06:12 Glucose 116 mg/dl (70-99(Fasting)) H 08/03/24 06:12 Calcium 9.3 mg/dl (8.6-10.3) 08/03/24 06:12 Impressions Pelvis X-Ray 08/02/24 14:42 XR pelvis 1-2V routine CLINICAL HISTORY: Postoperative evaluation. COMPARISON: Pelvis radiograph July 17, 2024. FINDINGS: Alignment of the total left hip arthroplasty is anatomic. There is no periprosthetic fracture or unexpected radiopaque foreign body. IMPRESSION: Expected findings following total left hip arthroplasty. ACT 112: Negative or not required by law. Electronically signed by: Jonathan Saldivar M.D. 08/02/2024 3:34 PM
--- NOTE | 2024-08-03 09:23 | Discharge Summary ---
Date of Service August 03, 2024 Admission HPI Per Admitting Provider History of Present Illness (including history relevant to procedure): This 68-year-old female presents to the clinic today for her preoperative history and physical. Patient complains of severe left hip pain with limitations in range of motion since November of this year. She states that his become progressively worse and is affecting her gait. Patient states she has lost 15 pounds since her last visit, with dietary modification. She has failed conservative management with corticosteroid injections, home rehab program, use of nonsteroidal agents without alleviation of her pain. She has a walker at home that she uses when the weather is bad. She is elected to proceed with surgical intervention at this time. Review Of Systems: A 12 point review of systems is performed and is unremarkable except for those things stated in the HPI and past medical history. Past Medical History: Problems: Osteoarthritis of left hip Left hip pain Hypercholesterolemia Depression Procedure History Procedure Procedure Date Comments APPENDECTOMY Carpal tunnel Allergies and Sensitivities: NKA Current Home Meds: (Last Updated 07/17 15:37) atorvastatin (atorvastatin 40 mg oral tablet) 40 mg PO qhs sertraline (sertraline 50 mg oral tablet) 50 mg PO Daily Initial Wt: 07/17 87.1 kg 192 lb Admission Exam Per Admitting Provider Physical Exam: (relevant to the procedure, including heart and lung evaluation) General: Alert and oriented x 3 with proper grooming and hygiene Eyes: Pupils are equal and reactive to light with accommodation. Extraocular movements are intact Throat: Posterior pharynx clear with absence of edema, erythema or exudate. Dentition is appropriate Cardiac: Regular rate and rhythm with no murmurs or gallops appreciated Lungs: Clear to auscultation throughout with no wheezing, rales or rhonchi Abdomen: Mildly obese, nondistended, nontender with NABS Extremities: Left hip: Flexion is limited to 90 degrees, internal rotation to -5 degrees and external rotation to 25 degrees. Logroll test is positive. Stinchfield test is positive. Scour and impingement tests positive. Antalgic gait Neuro: Cranial nerves II through XII are intact no motor or sensory deficit Skin: Normal in appearance no open skin areas or discharge Principal Diagnosis Left hip osteoarthritis Discharge Exam Left hip: Outer dressing was removed. Silverlon is clean dry and intact left in place. Patient is able to easily perform a straight leg raise test and actively dorsi and plantarflex her foot. She tolerates hip flexion to 80 degrees and only experiences a pulling sensation with light passive internal rotation. She has no discomfort with external rotation. Logroll test causes no discomfort. Patient is neurovascularly intact in the left lower extremity. Quad strength is 4/5. Discharge Data Allergies Allergy/AdvReac Type Severity Reaction Status Date / Time No Known Allergies Allergy Verified 08/02/24 10:46 Procedures Performed Operation Date: 08/02/24 11:55 Actual Procedures p Left Total Hip Arthroplasty, Uncemented(Left) - Norris Aragon MD Hospital Course (1) S/P total left hip arthroplasty: Patient had an uneventful overnight stay following left total hip arthroplasty. She is very pleased with the results of the surgery. She is hoping to be discharged home later this morning with in-home physical therapy beginning over the weekend. Total hip precautions reviewed Weightbearing as tolerated with walker assistance Ice with easy wrap Abduction pillow use x 6 weeks DVT prophylaxis with aspirin and DB stockings Pain controlled p.o. medication Keep Silverlon dressing in place Plan on discharge home today with in-home physical therapy Follow-up with [facility]oped[facility] as previously scheduled With questions contact our clinic at [phone] Total Time Total Time Spent Total Time Spent (In Minutes): 25 mins Discharge Plan Discharge Items Patient Disposition: Home - Home Health Services Reason For Visit: Left Hip Osteoarthritis Discharge Diagnosis: s/p left total hip arthroplasty Activity: As commented below Lifting: None Bathing: Keep incision dry Bathing Comment: May shower later today Sexual Activity: Wait until after follow-up appointment Exercise/Sports: Wait until after follow-up appointment Driving/Machine Use: No driving until cleared by reservations specialist Weightbearing: Left weightbearing Weightbearing Comment: As tolerated with walker assistance Non-emergency contact: Surgeon Call non-emergency contact if: you have any medication questions, your pain is not controlled, your temperature is above 101.5, your wound has increased drainage and your wound pain has increased Follow-up/Referrals: Richard Dalton MD [Primary Care Provider] - Diet: Regular Addtl Attending Provider Instructions: Post-operative Instructions Dear Patient and Family/Friends, Before you are discharged from the hospital, it is important to know what to expect when you get home after surgery. To that end, we have created this sheet of discharge instructions which covers many commonly asked questions. Make sure you go through this sheet in its entirety with your nurse before you are discharged. Please note that we will go over the specifics of your surgery and recovery when you return for your first post-operative visit. Sincerely, Dr. Aragon Medications 1. Oxycodone 5 mg: Take 1-2 tabs every 4-6 hours as needed for postoperative pain control. A prescription for this medication was sent to your pharmacy. 2. Diclofenac sodium 75 mg: Take 1 tab twice daily for the first 30 days postoperatively for pain and inflammation relief. This will also be sent to your pharmacy with a refill. 3. Aspirin 81 mg: Take 1 tab twice daily for the first 30 days postoperatively for blood clot prevention. Please purchase this medication. 4. Extra strength Tylenol 500 mg: Take 2 tabs every 6-8 hours as needed for additional supplemental pain control. Please purchase the medication. Pain Expect to be in a fair amount of pain after surgery. Remember, our goal is not to eliminate your pain, but to make it tolerable. It is a good idea to stay ahead of your pain by taking the medications you were prescribed once you get home. Typically, the pain starts improving 3-7 days after surgery. You should start weaning off the narcotic pain medication (oxycodone, hydrocodone, hydromorphone, morphine) as soon as your pain improves. Please call our office if your pain is not adequately controlled. Ice Ice your operative site at least 5 times a day for 15-30 minutes at a time. Make sure you have a thin cloth between the ice or cooling unit and your skin to prevent diallo bite. This is especially important if you received a nerve block. Continue icing your operative site for the first 5-7 days after surgery, then as needed. Diet/Nausea/Vomiting Start by drinking clear liquids and eating crackers. If you can tolerate this, then you may resume your normal diet. If you feel nauseated or vomit, take Zofran/ondansetron (if prescribed). Please call our office if you have intractable nausea or vomiting, or, if after hours, you may go to the Emergency Room for help. Constipation Constipation is a common side effect of narcotic pain medication. If you have not had a bowel movement within 2 days after surgery, we recommend purchasing an over the counter laxative such as Milk of Magnesia, Dulcolax, or Miralax from a local pharmacy, and taking it as instructed. Call our clinic if any questions. Nerve block The anesthesia team sometimes places a nerve block to help with post-operative pain control. This results in significant numbness and inability to move the extremity. The nerve block usually wears off in 8-12 hours, but sometimes can last up to 24 hours. Please call our office if you are still unable to move your extremity after 24 hours, unless you received a pain pump to take home. Nerve blocks typically wear off quickly, so start taking pain medication as soon as you start feeling soreness near your surgical site. Weight bearing and Range of Motion. Do not bear any weight through your operative extremity immediately after surgery. If you had upper extremity surgery, do not lift anything with that arm. If you are in a knee brace, keep it locked in place until your follow-up. We will discuss your weight bearing, range of motion, and lifting restrictions in detail at your first post-operative appointment. Continuous Passive Motion (CPM) Machine If you were prescribed a CPM machine, it will start after your first post- operative appointment, at which time we will give you instructions on the range of motion settings and duration of treatment Physical therapy You will be given a prescription for physical therapy or occupational therapy at your first post-operative appointment. Typically, patients start therapy within 1 week of surgery Wound care and showering We will inspect your wound at your first post-operative visit, and may do a dressing change at that time. Most patients will be in a water-proof dressing that is removed 14 days after surgery. It is normal to see some dried blood on the dressing. Do not remove your dressing, paper strips or sutures yourself unless you are given permission. Showering is allowed the day after surgery. Do not scrub or remove any dressings. The wound should not be submerged underwater (i.e. in a bathtub or pool) until 4 weeks after surgery DB stockings If you were given white stockings, these are to be worn at all times except to shower (on both legs) for the first 2 weeks after surgery. Driving You may not drive while taking narcotic pain medication or while in a cast, splint, sling or brace. You, the patient, need to make the final determination about when you are safe to drive, however, the earliest you may consider driving after surgery is below: Hand/Wrist/Elbow Surgery: 3 days Shoulder Surgery: 2 weeks Hip,/Knee/Ankle Surgery: 4 weeks Fracture repair: 6 weeks Return to Work Your return to work depends on what surgery was done and what type of work you do. Please bring any paperwork your employer needs completed to your first post-operative visit. Also, bring a description of your job duties, as this helps us to understand what risks you may face at work. Travel Avoid long distance travel (greater than 1 hour) in airplanes and cars for the first 6 weeks after surgery. If you must travel, you need to have a Doppler ultrasound done before you travel to rule out a blood clot in your legs. Follow-up You should have a follow-up appointment already scheduled 1-2 days after surgery. If not, please contact our office to make this appointment before you leave the hospital. When to call the office It is normal to have swelling and bruising in the limb that was operated on. This will improve with time. It is also normal to have fevers for the first 2 days after surgery. Reasons you should call your doctor include: Uncontrolled pain; Nausea, vomiting, or constipation that does not improve with medication; Fevers over 101.5, chills, sweats; Drainage or bleeding from the wound; Foul odor; Spreading areas of redness; Any other concerns. Contact Information Please call Dr. Aragon's office at [phone] with any concerns. Pending Studies at Discharge: No Stand-Alone Forms: [facility] Medications and DC Order Prescriptions: New aspirin 81 mg Tablet,Delayed Release (Dr/Ec) 81 mg PO BID 30 Days Qty: 60 0RF acetaminophen [Tylenol Extra Strength] 500 mg Tablet 1,000 mg PO Q8 30 Days Qty: 180 0RF oxycodone 5 mg Tablet 5 - 10 mg PO Q4H MDD Ongoing Tx; Max 12/day PRN (Reason: Post op pain control) Qty: 28 0RF diclofenac sodium 75 mg tablet,delayed release (DR/EC) 75 mg PO BID 30 Days Qty: 60 1RF Continued atorvastatin 40 mg Tablet 40 mg PO HS albuterol sulfate 90 mcg/actuation Hfa Aerosol Inhaler 2 puff INHALATION Q6H PRN (Reason: SOB) sertraline [Zoloft] 50 mg Tablet 50 mg PO HS Discontinued ibuprofen 200 mg Capsule 600 mg PO Q6H PRN (Reason: Pain) Discharge Orders: Discharge Order (Routine); Ordered 08/03/24 Ordered By: Eduard Perez Admission Data Admit Date/Time: 08/02/24 14:42 Attending Provider: Norris Aragon Admit Provider: Norris Aragon Primary Care Provider: Richard Dalton
[2024-08-03] MEDS ORDERED: CeleBREX 200 MG CAP PO SCH (21:00)
== END 2024-08-03 11:50 | disposition home health service (06) | DRG 470 ==
LOC: ASU 09:47 → 3E 14:42